=== PATIENT | female | born 1970 | race Caucasian/White ===

== ENCOUNTER → 2024-05-07 15:52 | Outpatient (REF) | payer BC, SELFPAY | LOC: HWWDC 15:52 | PROVIDERS: ATTENDING PHYSICIAN Obstetrics & Gynecology Gynecology; FAMILY PHYSICIAN Nurse Practitioner Family | DX: Z12.31 Encounter for screening mammogram for malignant neoplasm of breast (principal) | CPT/HCPCS: 77063; 77067 ==

== ENCOUNTER 2025-05-24 06:21 | Day surgery (SDC) | payer BC, SELFPAY | END 2025-05-24 14:16 | disposition home or self-care (01) | LOC: GI 06:21 | PROVIDERS: ATTENDING PHYSICIAN Internal Medicine | DX: D50.9 Iron deficiency anemia, unspecified (principal); K57.30 Diverticulosis of large intestine without perforation or abscess without bleeding; K29.70 Gastritis, unspecified, without bleeding; K22.89 Other specified disease of esophagus | CPT/HCPCS: 43239; 45378; 88305; 88342 ==

== ENCOUNTER → 2025-06-15 17:54 | Outpatient (REF) | payer BC, SELFPAY | LOC: WDC 17:54 | PROVIDERS: ATTENDING PHYSICIAN Obstetrics & Gynecology Gynecology; FAMILY PHYSICIAN Nurse Practitioner Family | DX: Z12.31 Encounter for screening mammogram for malignant neoplasm of breast (principal) | CPT/HCPCS: 77063; 77067 ==